=== PATIENT | male | born 1970 | race Two or more races ===

== ENCOUNTER 2021-04-10 07:53 | Inpatient (IN) | payer MEDICAID, OTHER ==
[~2021-04-10] VITALS: Ht 172.7 cm; Wt 83.2 kg
[2021-04-10 10:06] LABS: Basophils # (auto) 0 10 ^3/uL (0-0.2); Basophils % (auto) 0.8 % (0.0-2.0); Eosinophils # (auto) 0.1 10 ^3/uL (0-0.8); Eosinophils % (auto) 2.7 % (0.0-7.0); Hematocrit 35.8 % (41.0-53.0); Hemoglobin 12.2 g/dL (13.5-17.5); Lymphocytes # (auto) 1.1 10 ^3/uL (0.4-5.4); Lymphocytes % (auto) 21.1 % (10.0-50.0); Mean Corpuscular Hemoglobin 31.6 pg (28.0-32.0); Mean Corpuscular Hgb Conc. 34.1 g/dL (32.0-36.0); Mean Corpuscular Volume 92.9 fL (80.0-100.0); Monocytes # (auto) 0.6 10 ^3/uL (0-1.3); Monocytes % (auto) 11.4 % (0.0-12.0); Neutrophils # (auto) 3.3 10 ^3/uL (1.6-8.6); Nucleated Red Blood Cells % 0.1 %; Red Blood Cells 3.85 10^6/uL (4.5-5.90); Red Cell Distribution Width 14.6 % (11.8-14.3); White Blood Cell 5.1 10^3/uL (4.4-10.8)
[2021-04-10 10:17] LABS: Albumin 1.8 g/dL (3.4-5.0); Magnesium 2.9 mg/dL (1.6-2.6); Potassium 4.4 mmol/L (3.5-5.1)
[2021-04-10 10:20] LABS: BUN/Creatinine Ratio 17.2; Bilirubin, Total 1.4 mg/dL (0.2-1.0); Total Protein 7.6 g/dL (6.4-8.2)
[2021-04-10 14:01] LABS: Urine Bacteria NONE SEEN /hpf (None Seen); Urine Blood Negative /uL (Negative); Urine Specific Gravity 1.015 (1.001-1.035); Urine WBC <1 /hpf (0 - 3)
[2021-04-10] MEDS ORDERED: ACETAMINOPHEN 325 MG TAB PO PRN (16:45)
[2021-04-10] MEDS ORDERED: DOCUSATE CALCIUM 240 MG CAP PO PRN (16:45)
[2021-04-10] MEDS ORDERED: LORazepam 0.5 MG TAB PO PRN (16:45)
[2021-04-10] MEDS ORDERED: ONDANSETRON HCL 4 MG/2 ML VIAL IV PRN (16:45)
[2021-04-10] MEDS ORDERED: hydrALAZINE HCL 20 MG/ML VL IV PRN (16:45)
[2021-04-10] MEDS ORDERED: MORPHINE SULFATE INJECTION 2 MG/ML SYRG IV PRN ×2 (16:45)
[2021-04-10] MEDS ORDERED: NITROGLYCERIN 0.4 MG SL TAB SL PRN (16:45)
[2021-04-10 22:00] VITALS: BP 115/71
[2021-04-11] MEDS ORDERED: FURO40TA4 PO (03:14)
[2021-04-11] MEDS ORDERED: SPIR50TA5 PO (03:14)
[2021-04-11 06:29] LABS: Basophils # (auto) 0 10 ^3/uL (0-0.2); Basophils % (auto) 0.8 % (0.0-2.0); Eosinophils # (auto) 0.1 10 ^3/uL (0-0.8); Eosinophils % (auto) 3.3 % (0.0-7.0); Hematocrit 33.4 % (41.0-53.0); Hemoglobin 11.2 g/dL (13.5-17.5); Lymphocytes % (auto) 25.3 % (10.0-50.0); Mean Corpuscular Hemoglobin 31.3 pg (28.0-32.0); Mean Corpuscular Hgb Conc. 33.6 g/dL (32.0-36.0); Mean Corpuscular Volume 93.1 fL (80.0-100.0); Monocytes # (auto) 0.4 10 ^3/uL (0-1.3); Neutrophils # (auto) 2.3 10 ^3/uL (1.6-8.6); Neutrophils % (auto) 59.6 % (37.0-80.0); Red Blood Cells 3.59 10^6/uL (4.5-5.90); Red Cell Distribution Width 14.4 % (11.8-14.3); White Blood Cell 3.9 10^3/uL (4.4-10.8)
[2021-04-11 06:31] LABS: INR 1.19 (0.9-1.15)
[2021-04-11 06:33] LABS: Potassium 4.3 mmol/L (3.5-5.1)
[2021-04-11 06:47] LABS: Albumin 1.7 g/dL (3.4-5.0); BUN/Creatinine Ratio 18.2; Bilirubin, Total 1.4 mg/dL (0.2-1.0); Calcium 7.8 mg/dL (8.5-10.1); Total Protein 6.7 g/dL (6.4-8.2)
[2021-04-11 08:57] VITALS: BP 112/71
[2021-04-11] MEDS: ENOXAPARIN SOD 40 MG/0.4 ML SYRINGE SC SCH (09:35)
[2021-04-11] MEDS: PANTOPRAZOLE 40 MG TAB PO SCH (09:35)
[2021-04-11] MEDS ORDERED: ALBUMIN 25% 100 ML IV SCH (11:00)
[2021-04-11] MEDS ORDERED: ALBUMIN 25% 100 ML IV ONE (11:00)
[2021-04-11] MEDS: ALBUMIN 25% 100 ML IV SCH ×4 (11:36→14:44)
[2021-04-11 12:22] VITALS: BP 107/67
[2021-04-11] MEDS: LACTULOSE 20Gm/30ML SOLN PO SCH ×3 (14:44→23:20)
[2021-04-11 16:35] VITALS: BP 130/69
[2021-04-11 22:00] VITALS: BP 100/60
[2021-04-12 05:00] VITALS: BP 133/70
[2021-04-12] MEDS: LACTULOSE 20Gm/30ML SOLN PO SCH ×4 (06:17→23:55)
[2021-04-12] MEDS ORDERED: ALBUMIN 25% 100 ML IV ONE (08:15)
[2021-04-12 09:00] VITALS: BP 103/74
[2021-04-12] MEDS: PANTOPRAZOLE 40 MG TAB PO SCH (09:19)
[2021-04-12] MEDS: ENOXAPARIN SOD 40 MG/0.4 ML SYRINGE SC SCH (09:21)
[2021-04-12] MEDS ORDERED: FOLIC ACID 1 MG, MULTIPLE VITAMIN 10 ML, MAGNESIUM SULF SDV 50% 8 MEQ, THIAMINE INJ 100... INJ SCH ×5 (12:00)
[2021-04-12 13:00] VITALS: BP 119/70
[2021-04-12 17:00] VITALS: BP 120/74
[2021-04-12] MEDS: SPIRONOLACTONE 25 MG TAB PO SCH (18:06)
[2021-04-12 22:00] VITALS: BP 112/76
[2021-04-13 05:35] VITALS: BP 134/83
[2021-04-13 06:02] LABS: Amylase 134 U/L (25-115); Lipase 436 U/L (73-393)
[2021-04-13] MEDS: SPIRONOLACTONE 25 MG TAB PO SCH (06:15)
[2021-04-13] MEDS: LACTULOSE 20Gm/30ML SOLN PO SCH (06:15)
[2021-04-13] MEDS: PANTOPRAZOLE 40 MG TAB PO SCH (08:42)
[2021-04-13] MEDS: ENOXAPARIN SOD 40 MG/0.4 ML SYRINGE SC SCH (08:42)
[2021-04-13 08:58] VITALS: BP 117/77
[2021-04-14 13:03] LABS: Hepatitis C Antibody Negative (Negative)
[2021-04-14 13:04] LABS: Hepatitis B Surface Antibody Negative (Negative)
[2021-04-14 13:50] LABS: Hepatitis A Total Antibody Positive (Negative)
== END 2021-04-13 10:00 | disposition home or self-care (01) | DRG 282 ==
LOC: ER 07:53 → OVERFLOW 16:39 → EDBD 16:39 → CENTRAL 18:41
PROVIDERS: ADMIT Family Medicine; ATTEND Family Medicine
PROC: 0W9G3ZZ Drainage of Peritoneal Cavity, Percutaneous Approach (ICD-10-PCS; principal; 2021-04-11)
DX: K85.20 Alcohol induced acute pancreatitis without necrosis or infection (principal); K72.00 Acute and subacute hepatic failure without coma; K76.7 Hepatorenal syndrome; E43 Unspecified severe protein-calorie malnutrition; R64 Cachexia; K72.90 Hepatic failure, unspecified without coma; K72.10 Chronic hepatic failure without coma; K76.6 Portal hypertension; E88.09 Other disorders of plasma-protein metabolism, not elsewhere classified; R18.8 Other ascites; K74.69 Other cirrhosis of liver; K40.90 Unilateral inguinal hernia, without obstruction or gangrene, not specified as recurrent; D64.9 Anemia, unspecified; Z20.822 Contact with and (suspected) exposure to COVID-19; F10.10 Alcohol abuse, uncomplicated; R53.83 Other fatigue; Z88.0 Allergy status to penicillin; Z68.29 Body mass index [BMI] 29.0-29.9, adult
CPT/HCPCS: 36415; 49083; 74176; 76705; 76942; 80053; 81001; 82140; 82150; 83615; 83690; 83735; 83986; 84443; 84484; 85025; 85610; 86704; 86706; 86708; 86803; 87205; 87340; 87426; 89051; 93005; G0378; P9047